=== PATIENT | male | born 1970 | race Caucasian/White ===

== ENCOUNTER 2017-02-12 15:44 | Emergency (ER) | payer MEDICARE ==
[2017-02-12] MEDS ORDERED: Ketorolac 30 MG/ML SDV IVPUSH ONE (16:26)
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
[2017-02-12] MEDS ORDERED: Lactated Ringers 1,000 ML IV ONE (18:07)
--- NOTE | 2017-02-13 09:05 | CR ---
Lumbar Spine 2 or 3V INDICATION: low back pain without new injury, old trauma COMPARISON: None FINDINGS: 2 views 6 lumbar type vertebra. No compression deformities or subluxations. No disc space narrowing. IMPRESSION: Negative study.
== END 2017-02-12 19:30 | disposition home or self-care (01) ==
LOC: JP.ED 15:44
DX: M51.86 Other intervertebral disc disorders, lumbar region (principal); M62.830 Muscle spasm of back; F17.210 Nicotine dependence, cigarettes, uncomplicated
CPT/HCPCS: 72100; 81001; 87086; 96374; 99284; J1885; 99283

== ENCOUNTER 2022-08-26 15:50 | Emergency (ER) | payer MEDICARE | END 2022-08-26 18:21 | disposition home or self-care (01) | LOC: JP.ED 15:50 → MERGE 15:50 → JP.ED 18:21 | DX: L23.7 Allergic contact dermatitis due to plants, except food (principal); F17.210 Nicotine dependence, cigarettes, uncomplicated | CPT/HCPCS: 99282 ==